=== PATIENT | female | born 1935 | race Caucasian/White ===

== ENCOUNTER 2017-02-28 08:34 | Emergency (ER) | payer MEDICARE ==
[~2017-02-28] VITALS: Ht 160 cm; Wt 66.0 kg
[2017-02-28] MEDS ORDERED: WARF5TAB PO (09:21)
[2017-02-28] MEDS ORDERED: WARF2.5T PO (09:21)
[2017-02-28] MEDS ORDERED: CHOL200040 PO (09:24)
[2017-02-28] MEDS ORDERED: LISI-170 PO (09:24)
[2017-02-28] MEDS ORDERED: RESV50CA PO (09:24)
[2017-02-28] MEDS ORDERED: METO25TA35 PO (09:24)
[2017-02-28] MEDS ORDERED: SODIUM CHLORIDE FLUSH 10ML SYR IVF ONE (09:30)
[2017-02-28] MEDS ORDERED: HYDROmorphone 1 MG/ML, 1ML ONE (09:36)
[2017-02-28] MEDS ORDERED: ONDANSETRON 2MG/ML, 2ML ONE (09:37)
[2017-02-28 09:39] LABS: HEMATOCRIT 40.6 % (34.6-47.8); HEMOGLOBIN 13.7 g/dL (11.7-16.4); WHITE BLOOD COUNT 6.4 x10^3/uL (3.4-10)
[2017-02-28 09:52] LABS: BLOOD UREA NITROGEN 15 mg/dL (7-18)
[2017-02-28 09:56] LABS: ASPARTATE AMINO TRANSFERASE 22 U/L (15-37)
[2017-02-28] MEDS ORDERED: HYDROmorphone 1 MG/ML, 1ML IVPush PRN (10:00)
[2017-02-28] MEDS ORDERED: ONDANSETRON 2MG/ML, 2ML IVPush ONE (10:00)
[2017-02-28 11:37] VITALS: BP 128/73
[2017-02-28] MEDS ORDERED: HYDROcodone/APAP 5/325 TABLET ONE (12:16)
[2017-02-28] MEDS ORDERED: HYDROcodone/APAP 5/325 TABLET PO ONE (12:30)
== END 2017-02-28 12:37 | disposition home or self-care (01) ==
LOC: ED 11:08
DX: M54.16 Radiculopathy, lumbar region (principal); I48.91 Unspecified atrial fibrillation; I10 Essential (primary) hypertension; M54.31 Sciatica, right side
CPT/HCPCS: 36415; 80053; 85025; 85610; 93005; 96374; 96375; 99285; J1170; J2405

== ENCOUNTER 2017-03-14 09:59 | Emergency (ER) | payer MEDICARE ==
[~2017-03-14] VITALS: Ht 160 cm; Wt 65.9 kg
[~2017-03-14 09:59] MED LIST: CHOL200040 PO; LISI-170 PO; METO25TA35 PO; RESV50CA PO; WARF2.5T PO; WARF5TAB PO
[2017-03-14 10:06] VITALS: BP 145/85
[2017-03-14] MEDS ORDERED: HYDROcodone/APAP 5/325 TABLET ONE (11:29)
[2017-03-14] MEDS ORDERED: HYDROcodone/APAP 5/325 TABLET PO ONE (11:30)
== END 2017-03-14 12:03 | disposition home or self-care (01) ==
LOC: ED 11:55
DX: M54.41 Lumbago with sciatica, right side (principal); I10 Essential (primary) hypertension
CPT/HCPCS: 99283

== ENCOUNTER → 2017-03-25 | Outpatient (CLI) | payer MEDICARE | END | disposition home or self-care (01) | LOC: CFH 13:58 | PROVIDERS: ATTEND Family Medicine | DX: N64.4 Mastodynia (principal) | CPT/HCPCS: 76642; G0204 ==

== ENCOUNTER → 2017-04-28 | Outpatient (CLI) | payer MEDICARE | END | disposition home or self-care (01) | LOC: CFH 15:57 | PROVIDERS: ATTEND Family Medicine | DX: M51.26 Other intervertebral disc displacement, lumbar region (principal); M48.061 Spinal stenosis, lumbar region without neurogenic claudication; M43.16 Spondylolisthesis, lumbar region | CPT/HCPCS: 72148 ==

== ENCOUNTER → 2017-08-10 | Outpatient (CLI) | payer MEDICARE | LOC: CVU 10:48 | PROVIDERS: ATTEND Internal Medicine Cardiovascular Disease | DX: I08.0 Rheumatic disorders of both mitral and aortic valves (principal); I48.91 Unspecified atrial fibrillation; I10 Essential (primary) hypertension | CPT/HCPCS: 93306 ==

== ENCOUNTER 2017-08-30 10:30 | Emergency (ER) | payer MEDICARE ==
[~2017-08-30] VITALS: Ht 162.6 cm; Wt 67.4 kg
[2017-08-30 10:33] VITALS: BP 153/87
[2017-08-30 11:53] LABS: BASOPHILS # (AUTO) 0.04 x10^3/uL (0-0.1); BASOPHILS % (AUTO) 1 % (0-1); EOSINOPHILS # (AUTO) 0.07 x10^3/uL (0-0.4); EOSINOPHILS % (AUTO) 1 % (1-7); HCT (SEDRATE) 41.2 % (34.6-47.8); LYMPHOCYTES # (AUTO) 1.57 x10^3/uL (1-3.4); LYMPHOCYTES % (AUTO) 23 % (22-44); MD NO; MEAN CORPUSCULAR HEMOGLOBIN 32.2 pg (27.0-34.8); MEAN CORPUSCULAR HGB CONC 33.6 g/dL (32.4-35.8); MEAN CORPUSCULAR VOLUME 95.8 fL (80-100); MEAN PLATELET VOLUME 7.9 fL (7.4-10.4); MONOCYTES # (AUTO) 0.48 x10^3/uL (0.2-0.8); MONOCYTES % (AUTO) 7 % (2-9); NEUTROPHILS % (AUTO) 68 % (42-75); PLATELET COUNT 230 x10^3/uL (130-400); RED CELL DISTRIBUTION WIDTH 14.9 % (9.6-15.2)
[2017-08-30 13:15] LABS: CALCIUM 8.9 mg/dL (8.5-10.1); CHLORIDE 103 mmol/L (98-107)
[2017-08-30 13:20] LABS: ALANINE AMINOTRANSFERASE 19 U/L (12-78); ALBUMIN 3.7 g/dL (3.4-5.0); ALKALINE PHOSPHATASE 107 U/L (45-117); ANION GAP 8 mmol/L (5-15); BILIRUBIN,TOTAL 0.6 mg/dL (0.2-1.0); CREATININE 0.63 mg/dL (0.55-1.02); TOTAL PROTEIN 6.6 g/dL (6.4-8.2)
[2017-08-30 13:22] LABS: SEDIMENTATION RATE 12 mm/hr (0-20)
== END 2017-08-30 13:34 | disposition home or self-care (01) ==
LOC: ED 13:15
DX: R51 Headache (principal); I10 Essential (primary) hypertension; I48.91 Unspecified atrial fibrillation; Z79.01 Long term (current) use of anticoagulants; Z88.5 Allergy status to narcotic agent; M54.30 Sciatica, unspecified side
CPT/HCPCS: 36415; 70450; 80053; 85025; 85651; 99285; J7512

== ENCOUNTER → 2018-01-06 | Outpatient (CLI) | payer MEDICARE ==
[~2018-01-06] MED LIST changes: +GADOBUTROL 7.5 MMOL/7.5 ML PFS ONE
== END | disposition home or self-care (01) ==
LOC: CFH 10:19
PROVIDERS: ATTEND Otolaryngology
DX: G31.9 Degenerative disease of nervous system, unspecified (principal); D33.3 Benign neoplasm of cranial nerves; H92.02 Otalgia, left ear
CPT/HCPCS: 70553; A9585

== ENCOUNTER 2018-10-17 12:41 | Outpatient (CLI) | payer MEDICARE | END 2018-10-17 23:59 | disposition home or self-care (01) | LOC: CVU 12:41 | PROVIDERS: ATTEND Internal Medicine Cardiovascular Disease | DX: I08.8 Other rheumatic multiple valve diseases (principal) | CPT/HCPCS: 93306 ==

== ENCOUNTER 2019-03-07 16:54 | Inpatient (IN) | payer MEDICARE ==
[~2019-03-07] VITALS: Ht 160 cm; Wt 69.6 kg
[~2019-03-07 16:54] MED LIST changes: -GADOBUTROL 7.5 MMOL/7.5 ML PFS ONE
[2019-03-07] MEDS ORDERED: SODIUM CHLORIDE 0.9% 1,000 ML IV ONE (17:08)
--- NOTE | 2019-03-07 17:16 | NUR ---
XR AT BS
--- NOTE | 2019-03-07 17:19 | NUR ---
PT REPORT TO BREAK RN: MALLORY. PT CARE TRANSFERRED.
[2019-03-07] MEDS ORDERED: SODIUM CHLORIDE FLUSH 10ML SYR IVF ONE (17:30)
--- NOTE | 2019-03-07 17:35 | NUR ---
CÉSAR RN: PT BACK IN ROOM. EMT AT BEDSIDE TO COMPLETE EKG.
--- NOTE | 2019-03-07 17:58 | NUR ---
PT REPORT FROM ZI TEJADA. PT CARE TO BE RESUMED.
[2019-03-07 18:14] LABS: BASOPHILS # (AUTO) 0.03 x10^3/uL (0-0.1); BASOPHILS % (AUTO) 0 % (0-1); EOSINOPHILS % (AUTO) 0 % (1-7); LYMPHOCYTES # (AUTO) 0.84 x10^3/uL (1-3.4); LYMPHOCYTES % (AUTO) 6 % (22-44); MD NO; MEAN CORPUSCULAR HEMOGLOBIN 32.8 pg (27.0-34.8); MEAN CORPUSCULAR HGB CONC 32.5 g/dL (32.4-35.8); MEAN CORPUSCULAR VOLUME 101.1 fL (80-100); MEAN PLATELET VOLUME 8.4 fL (7.4-10.4); MONOCYTES # (AUTO) 0.87 x10^3/uL (0.2-0.8); MONOCYTES % (AUTO) 6 % (2-9); NEUTROPHILS # (AUTO) 12.61 x10^3/uL (1.8-6.8); NEUTROPHILS % (AUTO) 88 % (42-75); PLATELET COUNT 224 x10^3/uL (130-400); RED BLOOD COUNT 4.33 x10^6/uL (3.82-5.3); RED CELL DISTRIBUTION WIDTH 13.4 % (9.6-15.2)
[2019-03-07 18:24] LABS: ALBUMIN 3.7 g/dL (3.4-5.0); ANION GAP 11 mmol/L (5-15); CALCIUM 9.1 mg/dL (8.5-10.1); CHLORIDE 101 mmol/L (98-107)
[2019-03-07 18:27] LABS: ALANINE AMINOTRANSFERASE 27 U/L (12-78); ALKALINE PHOSPHATASE 127 U/L (45-117); BILIRUBIN,TOTAL 1.2 mg/dL (0.2-1.0); CREATINE KINASE, TOTAL 388 U/L (26-192); CREATININE 0.52 mg/dL (0.55-1.02); TOTAL PROTEIN 7.9 g/dL (6.4-8.2)
[2019-03-07] MEDS ORDERED: POTASSIUM CHLORIDE 20 MEQ TAB.ER.PRT PO ONE (19:00)
--- NOTE | 2019-03-07 19:54 | NUR ---
PT REPORT TO ZI WILDE FOR ROOM 425
[2019-03-07] MEDS ORDERED: POTASSIUM CHLORIDE 20 MEQ TAB.ER.PRT ONE (19:55)
--- NOTE | 2019-03-07 20:02 | NUR ---
IV ASSESSED: PATENT, FLUSHES. NS HUNG. PT IN SUPINE POSITION, ATTEMPTED TO ELEVATE HOB - UNABLE TO DO SO PT C/O SEVERE PAIN TO RT HIP. SPOUSE AND NEIGHBOR IN ROOM; HAVE BEEN UPDATED ON PENDING ADMISSION.
--- NOTE | 2019-03-07 20:05 | NUR ---
DR BROOKS BS FOR EXAM
--- NOTE | 2019-03-07 20:10 | NUR ---
ICE CHIPS PROVIDED (MELISSA BROOKS)
--- NOTE | 2019-03-07 20:14 | NUR ---
VO DR TAI: HOLD PO KCL - WILL BE CHANGED TO IV.
[2019-03-07] MEDS ORDERED: hydrALAzine 20 MG/ML, 1ML IVPush PRN (20:30)
[2019-03-07] MEDS ORDERED: POTASSIUM CHLORIDE 40 MEQ in SODIUM CHLORIDE 0.9% 500 ML IV ONE (20:30)
[2019-03-07] MEDS ORDERED: BISACODYL 10 MG SUPP PR PRN (20:30)
[2019-03-07] MEDS: ACETAMINOPHEN 325 MG TABLET PO PRN (20:57)
[2019-03-07] MEDS: OXYcodone IR 5MG TABLET PO PRN (20:58)
[2019-03-07] MEDS: GABAPENTIN 100 MG CAPSULE PO SCH (20:58)
[2019-03-07] MEDS: LISINOPRIL 20 MG TABLET PO SCH (20:58)
[2019-03-07] MEDS: METOPROLOL SUCCINATE 25 MG TAB.ER.24H PO SCH (20:58)
[2019-03-07 21:45] LABS: HEMOGLOBIN A1C 5.9 % (4.2-6.3)
[2019-03-07 21:46] LABS: FREE T4 (FREE THYROXINE) 1.48 ng/dL (0.76-1.46)
[2019-03-07] MEDS: morphine SULFATE 10 MG/ML, 1ML IVPush PRN (21:58)
[2019-03-08 00:06] VITALS: BP 150/79
[2019-03-08] MEDS: SODIUM CHLORIDE 0.9% 1,000 ML IV SCH ×5 (01:59→20:41)
[2019-03-08] MEDS: ACETAMINOPHEN 325 MG TABLET PO PRN ×3 (04:48→14:41)
[2019-03-08] MEDS: OXYcodone IR 5MG TABLET PO PRN ×2 (04:48→20:48)
[2019-03-08] MEDS: GABAPENTIN 100 MG CAPSULE PO SCH ×4 (05:00→20:48)
[2019-03-08] MEDS: METOPROLOL SUCCINATE 25 MG TAB.ER.24H PO SCH (05:00)
[2019-03-08 05:03] LABS: MICROSCOPIC AUTO
[2019-03-08 05:05] LABS: CULTURE INDICATED? NO
[2019-03-08 06:31] LABS: BASOPHILS # (AUTO) 0.03 x10^3/uL (0-0.1); BASOPHILS % (AUTO) 0 % (0-1); EOSINOPHILS # (AUTO) 0.15 x10^3/uL (0-0.4); EOSINOPHILS % (AUTO) 1 % (1-7); LYMPHOCYTES # (AUTO) 1.11 x10^3/uL (1-3.4); LYMPHOCYTES % (AUTO) 10 % (22-44); MD NO; MEAN CORPUSCULAR HEMOGLOBIN 32.8 pg (27.0-34.8); MEAN CORPUSCULAR HGB CONC 32.6 g/dL (32.4-35.8); MEAN CORPUSCULAR VOLUME 100.6 fL (80-100); MEAN PLATELET VOLUME 8.8 fL (7.4-10.4); MONOCYTES # (AUTO) 0.92 x10^3/uL (0.2-0.8); MONOCYTES % (AUTO) 9 % (2-9); NEUTROPHILS # (AUTO) 8.65 x10^3/uL (1.8-6.8); NEUTROPHILS % (AUTO) 80 % (42-75); PLATELET COUNT 204 x10^3/uL (130-400); RED BLOOD COUNT 3.88 x10^6/uL (3.82-5.3); RED CELL DISTRIBUTION WIDTH 13.4 % (9.6-15.2)
[2019-03-08 06:51] LABS: ALANINE AMINOTRANSFERASE 27 U/L (12-78); ALBUMIN 3.1 g/dL (3.4-5.0); ANION GAP 7 mmol/L (5-15); CALCIUM 8.7 mg/dL (8.5-10.1); CHLORIDE 107 mmol/L (98-107); CHOLESTEROL, TOTAL 179 mg/dL (140-239); CREATININE 0.49 mg/dL (0.55-1.02)
[2019-03-08 06:53] LABS: ALKALINE PHOSPHATASE 102 U/L (45-117); BILIRUBIN,TOTAL 1.2 mg/dL (0.2-1.0); CHOL/HDL RATIO 3.4; HDL CHOL % 29 % (28-40); HDL CHOLESTEROL (DIRECT) 52 mg/dL (40-60); LDL CHOLESTEROL,CALCULATED 108 mg/dL (54-169); LDL/HDL RATIO 2.1 (0.5-3.0); TOTAL PROTEIN 6.6 g/dL (6.4-8.2); TRIGLYCERIDES 93 mg/dL (50-200); VLDL CHOLESTEROL 19 mg/dL (0-25)
[2019-03-08 07:29] VITALS: BP 146/78
[2019-03-08] MEDS: SENNA/DOCUSATE TABLET PO SCH (08:41)
[2019-03-08] MEDS: LISINOPRIL 20 MG TABLET PO SCH (08:41)
[2019-03-08] MEDS: CYCLOBENZAPRINE 10 MG TABLET PO PRN ×2 (08:43→16:55)
[2019-03-08] MEDS: ONDANSETRON 2MG/ML, 2ML IVPush PRN ×2 (09:00→15:15)
[2019-03-08 10:39] LABS: INTERNATIONAL NORMALIZED RATIO 1.07 (0.93-1.1); PROTHROMBIN TIME 11.2 Seconds (9.6-11.5)
[2019-03-08 11:55] VITALS: BP 124/86
[2019-03-08] MEDS: DILTIAZEM 125 MG in SODIUM CHLORIDE 0.9% 100 ML IV SCH (11:57)
[2019-03-08 15:00] VITALS: BP 108/68
[2019-03-08] MEDS ORDERED: LIDODERM REMOVE PATCH NOTE XX PRN (15:00)
[2019-03-08] MEDS: LIDODERM 5% PATCH TD PRN (15:16)
[2019-03-08] MEDS: RIVAROXABAN 20 MG TABLET PO SCH (16:55)
[2019-03-08 19:34] VITALS: BP 137/80
[2019-03-09] MEDS: DILTIAZEM 125 MG in SODIUM CHLORIDE 0.9% 100 ML IV SCH ×2 (01:10→15:44)
[2019-03-09 03:13] VITALS: BP 158/90
[2019-03-09] MEDS: SODIUM CHLORIDE 0.9% 1,000 ML IV SCH ×3 (04:00→17:11)
[2019-03-09] MEDS: CYCLOBENZAPRINE 10 MG TABLET PO PRN (05:29)
[2019-03-09] MEDS: METOPROLOL SUCCINATE 25 MG TAB.ER.24H PO SCH (05:29)
[2019-03-09] MEDS: GABAPENTIN 100 MG CAPSULE PO SCH ×4 (05:29→20:34)
[2019-03-09 08:38] VITALS: BP 125/84
[2019-03-09] MEDS: SENNA/DOCUSATE TABLET PO SCH (09:14)
[2019-03-09] MEDS: LISINOPRIL 20 MG TABLET PO SCH (09:14)
[2019-03-09] MEDS: OXYcodone IR 5MG TABLET PO PRN (09:17)
[2019-03-09] MEDS: morphine SULFATE 10 MG/ML, 1ML IVPush PRN (11:17)
[2019-03-09 12:30] VITALS: BP 123/73
[2019-03-09] MEDS: RIVAROXABAN 20 MG TABLET PO SCH (17:07)
[2019-03-09 20:11] VITALS: BP 146/82
[2019-03-09] MEDS: ACETAMINOPHEN 325 MG TABLET PO PRN (20:34)
[2019-03-10 00:27] VITALS: BP 124/59
[2019-03-10] MEDS: DILTIAZEM 60 MG TABLET PO SCH ×5 (00:29→23:54)
[2019-03-10 02:16] VITALS: BP 132/72
[2019-03-10 05:00] LABS: ANION GAP 8 mmol/L (5-15); CALCIUM 8.6 mg/dL (8.5-10.1); CHLORIDE 106 mmol/L (98-107)
[2019-03-10 05:03] LABS: CREATININE 0.38 mg/dL (0.55-1.02)
[2019-03-10 06:38] VITALS: BP 149/88
[2019-03-10] MEDS: METOPROLOL SUCCINATE 25 MG TAB.ER.24H PO SCH (06:41)
[2019-03-10] MEDS: GABAPENTIN 100 MG CAPSULE PO SCH ×4 (06:41→20:57)
[2019-03-10] MEDS: morphine SULFATE 10 MG/ML, 1ML IVPush PRN (06:42)
[2019-03-10] MEDS: LISINOPRIL 20 MG TABLET PO SCH (08:41)
[2019-03-10] MEDS: SENNA/DOCUSATE TABLET PO SCH (08:41)
[2019-03-10] MEDS: SODIUM CHLORIDE 0.9% 1,000 ML IV SCH ×2 (10:16→21:09)
[2019-03-10] MEDS: OXYcodone IR 5MG TABLET PO PRN ×3 (10:16→23:54)
[2019-03-10 14:00] VITALS: BP 104/56
[2019-03-10] MEDS: RIVAROXABAN 20 MG TABLET PO SCH (16:12)
[2019-03-10] MEDS: LIDODERM 5% PATCH TD PRN (20:58)
[2019-03-10 22:31] VITALS: BP 133/81
[2019-03-11 00:07] VITALS: BP 142/83
[2019-03-11] MEDS ORDERED: OMNIPAQUE 350 MG/ML, 100ML BOTTLE ONE (00:45)
[2019-03-11] MEDS ORDERED: FUROSEMIDE 20 MG/2 ML IV ONE (02:30)
[2019-03-11 03:19] LABS: BASOPHILS # (AUTO) 0.02 x10^3/uL (0-0.1); BASOPHILS % (AUTO) 0 % (0-1); EOSINOPHILS # (AUTO) 0.22 x10^3/uL (0-0.4); EOSINOPHILS % (AUTO) 3 % (1-7); LYMPHOCYTES # (AUTO) 0.75 x10^3/uL (1-3.4); LYMPHOCYTES % (AUTO) 8 % (22-44); MD NO; MEAN CORPUSCULAR HEMOGLOBIN 33.2 pg (27.0-34.8); MEAN CORPUSCULAR HGB CONC 32.9 g/dL (32.4-35.8); MEAN CORPUSCULAR VOLUME 100.8 fL (80-100); MEAN PLATELET VOLUME 8.3 fL (7.4-10.4); MONOCYTES # (AUTO) 0.87 x10^3/uL (0.2-0.8); MONOCYTES % (AUTO) 10 % (2-9); NEUTROPHILS # (AUTO) 7.03 x10^3/uL (1.8-6.8); NEUTROPHILS % (AUTO) 79 % (42-75); PLATELET COUNT 220 x10^3/uL (130-400); RED BLOOD COUNT 3.67 x10^6/uL (3.82-5.3); RED CELL DISTRIBUTION WIDTH 13.1 % (9.6-15.2)
[2019-03-11 03:29] LABS: ALBUMIN 2.7 g/dL (3.4-5.0); ANION GAP 7 mmol/L (5-15); CALCIUM 8.4 mg/dL (8.5-10.1); CHLORIDE 101 mmol/L (98-107)
[2019-03-11 03:35] LABS: ALANINE AMINOTRANSFERASE 22 U/L (12-78); ALKALINE PHOSPHATASE 94 U/L (45-117); BILIRUBIN,TOTAL 0.8 mg/dL (0.2-1.0); CREATININE 0.42 mg/dL (0.55-1.02); TOTAL PROTEIN 6.8 g/dL (6.4-8.2); TROPONIN I < 0.015 ng/mL (0.000-0.045)
[2019-03-11] MEDS: CYCLOBENZAPRINE 10 MG TABLET PO PRN ×3 (05:01→22:54)
[2019-03-11] MEDS: OXYcodone IR 5MG TABLET PO PRN ×3 (05:01→22:54)
[2019-03-11 06:16] VITALS: BP 135/71
[2019-03-11] MEDS: METOPROLOL SUCCINATE 25 MG TAB.ER.24H PO SCH (06:20)
[2019-03-11] MEDS: DILTIAZEM 60 MG TABLET PO SCH ×4 (06:20→23:57)
[2019-03-11] MEDS: GABAPENTIN 100 MG CAPSULE PO SCH ×4 (06:20→20:59)
[2019-03-11] MEDS ORDERED: FUROSEMIDE 40 MG/4 ML IV ONE (09:30)
[2019-03-11] MEDS ORDERED: DOXYCYCLINE 50 MG/5 ML ORAL SUSP PO SCH (09:30)
[2019-03-11] MEDS: CEFTRIAXONE PMX 2GM/50ML 50 ML IV SCH (09:44)
[2019-03-11] MEDS: POTASSIUM CHLORIDE 20 MEQ PACKET PO SCH ×3 (09:45→13:31)
[2019-03-11] MEDS: SENNA/DOCUSATE TABLET PO SCH (09:45)
[2019-03-11] MEDS: LISINOPRIL 20 MG TABLET PO SCH (09:45)
[2019-03-11] MEDS ORDERED: DOXYCYCLINE 100MG TABLET PO SCH (12:46)
[2019-03-11 12:53] VITALS: BP 136/76
[2019-03-11 13:08] VITALS: BP 131/75
[2019-03-11] MEDS: RIVAROXABAN 20 MG TABLET PO SCH (18:00)
[2019-03-11 18:02] VITALS: BP 154/95
[2019-03-11 19:05] VITALS: BP 137/84
[2019-03-11] MEDS: DOXYCYCLINE 100MG TABLET PO SCH (20:55)
[2019-03-11] MEDS: morphine SULFATE 10 MG/ML, 1ML IVPush PRN (20:59)
[2019-03-11] MEDS: LIDODERM 5% PATCH TD PRN (21:22)
[2019-03-11] MEDS: ONDANSETRON 2MG/ML, 2ML IVPush PRN (21:59)
[2019-03-11] MEDS: ACETAMINOPHEN 325 MG TABLET PO PRN (22:53)
[2019-03-12] VITALS: BP 132/70
[2019-03-12] MEDS: DILTIAZEM 60 MG TABLET PO SCH ×3 (06:02→17:59)
[2019-03-12 06:03] VITALS: BP 116/72
[2019-03-12] MEDS: GABAPENTIN 100 MG CAPSULE PO SCH ×4 (06:03→22:22)
[2019-03-12] MEDS: METOPROLOL SUCCINATE 25 MG TAB.ER.24H PO SCH (06:03)
[2019-03-12 06:14] LABS: ANION GAP 7 mmol/L (5-15); CALCIUM 9.5 mg/dL (8.5-10.1); CHLORIDE 95 mmol/L (98-107)
[2019-03-12 06:16] LABS: CREATININE 0.45 mg/dL (0.55-1.02)
[2019-03-12 07:10] VITALS: BP 144/84
[2019-03-12] MEDS: OXYcodone IR 5MG TABLET PO PRN ×2 (08:19→17:58)
[2019-03-12] MEDS: DOXYCYCLINE 100MG TABLET PO SCH ×2 (08:19→22:22)
[2019-03-12] MEDS: LISINOPRIL 20 MG TABLET PO SCH (08:19)
[2019-03-12] MEDS: SENNA/DOCUSATE TABLET PO SCH (08:19)
[2019-03-12] MEDS: CEFTRIAXONE PMX 2GM/50ML 50 ML IV SCH (09:06)
[2019-03-12 11:47] VITALS: BP 120/79
[2019-03-12 14:00] VITALS: BP 149/89
[2019-03-12] MEDS: POLYETHYLENE GLYCOL 17 GM PACKET PO PRN (17:57)
[2019-03-12] MEDS: RIVAROXABAN 15 MG TABLET PO SCH (17:57)
[2019-03-12 19:06] VITALS: BP 133/78
[2019-03-12] MEDS ORDERED: MAGNESIUM SULFATE PMX 2GM/50ML 50 ML IV ONE (22:30)
[2019-03-12] MEDS: LIDODERM 5% PATCH TD PRN ×2 (22:37→23:09)
[2019-03-12] MEDS: ONDANSETRON 2MG/ML, 2ML IVPush PRN (23:09)
[2019-03-12] MEDS: morphine SULFATE 10 MG/ML, 1ML IVPush PRN (23:10)
[2019-03-13] MEDS: DILTIAZEM 60 MG TABLET PO SCH ×5 (00:15→22:50)
[2019-03-13] MEDS: morphine SULFATE 10 MG/ML, 1ML IVPush PRN (00:15)
[2019-03-13] MEDS: METOPROLOL SUCCINATE 25 MG TAB.ER.24H PO SCH (06:12)
[2019-03-13] MEDS: OXYcodone IR 5MG TABLET PO PRN ×2 (06:12→21:20)
[2019-03-13] MEDS: GABAPENTIN 100 MG CAPSULE PO SCH ×4 (06:13→21:20)
[2019-03-13 06:55] VITALS: BP 138/80
[2019-03-13 07:03] LABS: CHLORIDE 93 mmol/L (98-107)
[2019-03-13 07:08] LABS: ANION GAP 8 mmol/L (5-15); CALCIUM 9.4 mg/dL (8.5-10.1); CREATININE 0.45 mg/dL (0.55-1.02)
[2019-03-13] MEDS: SENNA/DOCUSATE TABLET PO SCH (09:28)
[2019-03-13] MEDS: DOXYCYCLINE 100MG TABLET PO SCH ×2 (09:28→21:20)
[2019-03-13] MEDS: LISINOPRIL 20 MG TABLET PO SCH (09:28)
[2019-03-13] MEDS: CYCLOBENZAPRINE 10 MG TABLET PO PRN (09:29)
[2019-03-13] MEDS: CEFTRIAXONE PMX 2GM/50ML 50 ML IV SCH (09:30)
[2019-03-13 11:38] VITALS: BP 151/79
[2019-03-13] MEDS: POLYETHYLENE GLYCOL 17 GM PACKET PO PRN (11:38)
[2019-03-13 12:17] VITALS: BP 101/67
[2019-03-13] MEDS ORDERED: POTASSIUM CHLORIDE 20 MEQ TAB.ER.PRT PO ONE (15:00)
[2019-03-13 16:50] VITALS: BP 138/82
[2019-03-13] MEDS: RIVAROXABAN 15 MG TABLET PO SCH (16:56)
[2019-03-13 20:03] VITALS: BP 123/72
[2019-03-13] MEDS: CEFDINIR 300 MG CAPSULE PO SCH (21:20)
[2019-03-14] MEDS: OXYcodone IR 5MG TABLET PO PRN ×2 (01:48→16:03)
[2019-03-14 02:20] VITALS: BP 132/77
[2019-03-14] MEDS: CYCLOBENZAPRINE 10 MG TABLET PO PRN (05:25)
[2019-03-14] MEDS: GABAPENTIN 100 MG CAPSULE PO SCH ×3 (05:25→16:00)
[2019-03-14] MEDS: DILTIAZEM 60 MG TABLET PO SCH ×2 (05:26→11:24)
[2019-03-14] MEDS: METOPROLOL SUCCINATE 25 MG TAB.ER.24H PO SCH (05:26)
[2019-03-14 05:37] LABS: ANION GAP 5 mmol/L (5-15); CALCIUM 8.9 mg/dL (8.5-10.1); CHLORIDE 97 mmol/L (98-107)
[2019-03-14 07:15] VITALS: BP 119/63
[2019-03-14] MEDS: DOXYCYCLINE 100MG TABLET PO SCH (08:42)
[2019-03-14] MEDS: LISINOPRIL 20 MG TABLET PO SCH (08:42)
[2019-03-14] MEDS: CEFDINIR 300 MG CAPSULE PO SCH (08:42)
[2019-03-14] MEDS: SENNA/DOCUSATE TABLET PO SCH (08:46)
[2019-03-14] MEDS: CEFTRIAXONE PMX 2GM/50ML 50 ML IV SCH (09:12)
[2019-03-14] MEDS ORDERED: LISI-170 PO (12:06)
[2019-03-14] MEDS ORDERED: CYCL-259 PO (12:06)
[2019-03-14] MEDS ORDERED: DILT60TA27 PO (12:06)
[2019-03-14] MEDS ORDERED: DOXY100T PO (12:06)
[2019-03-14] MEDS ORDERED: GABA-826 PO (12:06)
[2019-03-14] MEDS ORDERED: CEFD300C37 PO (12:06)
[2019-03-14] MEDS ORDERED: SENN-193 PO (12:06)
[2019-03-14] MEDS ORDERED: OXYC5TAB3 PO (12:06)
[2019-03-14] MEDS ORDERED: RIVA15TA PO (12:06)
[2019-03-14 12:08] VITALS: BP 104/64
== END 2019-03-14 16:10 | DRG 871 ==
LOC: ED 17:28 → EDIP 18:34 → 4WST 20:30 → UNDODISIN 03-14 16:10
PROVIDERS: ADMIT Internal Medicine; ATTEND Internal Medicine
PROC: 0T9B70Z Drainage of Bladder with Drainage Device, Via Natural or Artificial Opening (ICD-10-PCS; principal; 2019-03-08)
DX: A41.9 Sepsis, unspecified organism (principal); J18.9 Pneumonia, unspecified organism; G93.41 Metabolic encephalopathy; M62.82 Rhabdomyolysis; I48.20 Chronic atrial fibrillation, unspecified; D68.69 Other thrombophilia; I48.92 Unspecified atrial flutter; E87.1 Hypo-osmolality and hyponatremia; M48.54XA Collapsed vertebra, not elsewhere classified, thoracic region, initial encounter for fracture; E86.0 Dehydration; Z88.8 Allergy status to other drugs, medicaments and biological substances; D75.89 Other specified diseases of blood and blood-forming organs; E87.6 Hypokalemia; G89.29 Other chronic pain; I11.9 Hypertensive heart disease without heart failure; I35.1 Nonrheumatic aortic (valve) insufficiency; J32.0 Chronic maxillary sinusitis; K90.0 Celiac disease; M16.10 Unilateral primary osteoarthritis, unspecified hip; M47.816 Spondylosis without myelopathy or radiculopathy, lumbar region; M54.30 Sciatica, unspecified side; W18.39XA Other fall on same level, initial encounter; Y93.89 Activity, other specified; Y92.89 Other specified places as the place of occurrence of the external cause; Y99.8 Other external cause status; Z82.3 Family history of stroke
CPT/HCPCS: 36415; 70450; 71045; 71275; 72131; 72192; 80048; 80053; 80061; 81001; 82306; 82550; 82607; 83036; 83605; 83735; 83880; 84100; 84439; 84443; 84484; 85025; 85610; 87040; 93005; 93306; 99285; G0378; J0696; J1940; J2405; J3480; Q9967; J2270; J3475; J7030; J7040